=== PATIENT | female | born 1955 | race Caucasian/White ===

== ENCOUNTER → 2020-05-12 12:31 | Outpatient (CLI) | payer OTHER, MEDICAID, SELFPAY ==
--- NOTE | 2020-05-12 | DI.CT.S_ITS ---
PROCEDURE: CT INTERNAL AUDITORY CANALS BI INDICATIONS: Pulsatile tinnitus bilateral ears COMPARISON: None. TECHNIQUE: Noncontrast 0.6 mm thick direct axial and coronal sections acquired through each temporal bone separately. FINDINGS: Image quality: Excellent. RIGHT: External auditory canal: Canal has a normal appearance. Middle ear: The middle ear structures, including the ossicles and tympanic membrane, appear normal. No abnormal fluid or soft tissue density. Inner ear: Inner ear is normally formed and appears unremarkable. Facial nerve appears normal throughout is course. Mastoids: Mastoid air cells are clear. LEFT: External auditory canal: Canal has a normal appearance. Middle ear: The middle ear structures, including the ossicles and tympanic membrane, appear normal. No abnormal fluid or soft tissue density. Inner ear: Inner ear is normally formed and appears unremarkable. Facial nerve appears normal throughout its course. Mastoids: Mastoid air cells are clear. MISCELLANEOUS: Visualized surrounding bones appear unremarkable. Visualized intracranial structures, including the cerebellopontine angle cisterns, appear normal. There is chronic mucosal thickening seen within the left maxillary sinus. Mild mucosal thickening is seen elsewhere within the visualized paranasal sinuses. IMPRESSION: A cause of pulsatile tinnitus is not seen on this study. Focal left maxillary sinus disease noted. If it would be helpful for clinical management decision making, please consider a dedicated IAC protocol MRI (without and with contrast) for further evaluation (assuming that there is no contraindication). Dictated by: Guicho Flores M.D. on 05/12/2020 at 13:44 Approved by: Guicho Flores M.D. on 05/12/2020 at 13:46
== END ==
PROVIDERS: PCP Family Medicine; Referring Provider Otolaryngology; Visit Provider Otolaryngology
DX: H93.A3 Pulsatile tinnitus, bilateral (principal); J32.0 Chronic maxillary sinusitis
CPT/HCPCS: 70480

== ENCOUNTER 2020-07-25 12:06 | Day surgery (SDC) | payer OTHER, MEDICAID, SELFPAY ==
[2020-07-25] VITALS (7 sets, daily range): BP systolic 124–141; BP diastolic 65–82; PULSE 72–92; RESP 12–20; TEMP 36.4–37.2; O2SAT 76–99; BMI 51.7
--- NOTE | 2020-07-25 | PATH_ITS ---
[facility] Accession Number: [id number] . 01 Material submitted: . rectum - RECTAL/ANAL VERGE POLYP . 02 Diagnosis: Rectal/Anal Verge Polyp: Portions of hyperplastic polyp x2. MRV 07/28/2020 1041 Local . 02 Electronically signed: . Loulou Ricks MD, Pathologist NPI- [id number] . 01 Gross description: . RECTAL/ANAL VERGE POLYP: Received in formalin are 2 fragment(s) of piña, soft tissue measuring 0.3 x 0.2 x 0.1 cm to 0.3 x 0.2 x 0.1 cm submitted entirely in 1 cassette(s) /QBJ 07/26/2020 0903 Local . 02 Pathologist provided ICD-10: K63.5 . 02 CPT . 634680 Performed at: 01 [facility] [address] [id number] MD Dajuan Booker MD Phone: [phone] Performed at: 02 [facility] [address] [place], [place] [id number] MD Lillie Kenney MD Phone: [phone]
--- NOTE | 2020-07-25 | DI.MRI.S_ITS ---
PROCEDURE: MR HEAD/BRAIN WO CON INDICATIONS: Tinnitus, unspecified ear TECHNIQUE: Non-contrast axial T1 spin echo, axial T2 fast spin echo, sagittal and axial FLAIR, coronal T2 fast spin echo, axial gradient echo, axial diffusion and ADC through the brain. Thin section, high-resolution axial CISS images with coronal reconstructions obtained through the internal auditory canals COMPARISON: [facility], CT, CT INTERNAL AUDITORY CANALS , 05/12/2020, 12:31. FINDINGS: Image quality: Excellent. CSF spaces: Ventricles appear symmetric in size and shape. Basal cisterns are patent. No extra-axial fluid collections. Brain: No intracranial bleeds or mass effects. There is mild cerebral volume loss for age. There are minimal periventricular and deep white matter chronic small vessel ischemic changes. Brainstem appears normal. Diffusion-weighted images show no acute ischemic insults. No chronic ischemic insults. Normal intravascular flow voids are present. Skull and face: Calvarial bone marrow is normal in signal. Orbits are normal. Sinuses: Mild mucosal thickening in the right maxillary sinus. Moderate mucosal thickening in the left maxillary sinus. The mastoids are clear. IMPRESSION: 1. No evidence of vestibular schwannoma. 2. Right AICA loop crosses the superior margin of the cisternal segment of the right 7th-8th cranial nerve complex. Please correlate with clinical data to exclude vascular loop compression syndrome. 3. Mild, diffuse cerebral volume loss. 4. Minimal periventricular and subcortical white matter chronic microvascular ischemic change. Dictated by: Bee Castellanos MD, PhD on 07/25/2020 at 15:57 Approved by: Bee Castellanos MD, PhD on 07/25/2020 at 16:03
[2020-07-25] MEDS: SODIUM CHLORIDE 0.9% 1,000 ML 200 ML IV (13:30)
--- NOTE | 2020-07-25 14:33 | PM.HP.1 ---
History of Present Illness History of Present Illness Date Patient Seen: 07/25/20 Time Patient Seen: 14:33 Chief complaint: SCREENING COLONOSCOPY/Tinnitus, unspecified ear Narrative: This is a 64-year-old woman with recent finding of blood in the stool. She has never had a screening colonoscopy. She denies any personal or family history of colon cancer colon polyps. She denies any unexplained abdominal pain or unexplained weight loss, or any change in bowel habits. She denies any cardiac history. She is on several medications for tinnitus. ROS positive for tinnitus, Thirteen system review is otherwise negative other than as mentioned below and in HPI. PE: GENERAL: Well groomed and cooperative. Appears stated age. Answers questions promptly and appropriately. Vital signs noted. HENT: Normocephalic, atraumatic. Hearing intact. EYES: Conjunctiva pink, sclera white, no periorbital swelling. CARDIOVASCULAR: Regular rate. No pedal edema. RESPIRATORY: Non-tachypneic, breathing comfortably on room air. GASTROINTESTINAL: Abdomen soft and non-distended GENITALURINARY: No flank tenderness. MUSCULOSKELETAL: Equal tone and mass bilaterally. SKIN: Warm, dry, soft, appropriate color for ethnicity. No other lesions, rashes, or wounds. NEURO: Alert and Oriented X 3. No gross sensory deficits, or cognitive issues. PSYCH: Appropriate affect and mood. Patient History Medical History Tinnitus of both ears (Acute) Surgical History Status post appendectomy Family & Social History Social History: household members spouse Tobacco & Substance use: Smoking Status Never smoker alcohol intake never Substance Use Type does not use Meds Home Medications and Allergies Home Medications Medication Instructions Recorded Confirmed Type alprazolam [Xanax] 0.5 mg PO BID 07/25/20 07/25/20 History evening primrose oil 1,000 mg PO BID 07/25/20 07/25/20 History melatonin 10 mg PO BEDTIME 07/25/20 07/25/20 History mirtazapine 30 mg PO DAILY 07/25/20 07/25/20 History temazepam 30 mg PO BEDTIME 07/25/20 07/25/20 History Allergies Allergy/AdvReac Type Severity Reaction Status Date / Time No Known Drug Allergies Allergy Verified 07/25/20 13:15 Exam Vital Signs (past 8 hours): - 07/25/20 13:31 Temperature 99.0 F Pulse Rate 75 Respiratory Rate 12 Blood Pressure 127/73 Pulse Oximetry 99 Oxygen Delivery Method Room Air Assessment & Plan Assessment and plan (1) Rectal bleeding: Status: Acute Assessment & Plan narrative: Risks and benefits of screening colonoscopy and possible polypectomy were discussed with the patient including risk of bleeding, perforation, need for additional procedures, risks of anesthesia. The patient desires to proceed with the colonoscopy procedure. COVID-19 COVID-19 status: Negative Result date/Date tested (Pos, Neg/Pending): 07/21/20 Time Spent With Patient Time with patient: 15-24 minutes Quality VTE Deep Vein Thrombosis/Pulmonary Embolism Present on Admission: No
--- NOTE | 2020-07-25 14:37 | P.OP.ENDO_ITS ---
Operative Date/Time/Diagnoses Date of procedure: 07/25/20 Time of procedure: 14:37 Pre-op diagnosis: rectal bleeding Post-op diagnosis: other (polyp at anal verge) Procedure & Clinicians Study performed: colonoscopy procedural sedation performed by the endoscopist polypectomy with cold forceps Same procedure as scheduled: Yes Indications: Rectal bleeding Surgeon: Anita Costa Procedure Notes SCOAP/Timeout: Performed Procedure in detail: The patient was brought to the room and placed in left lateral decubitus position with all bony prominences padded. A time-out was performed and then the patient was given procedural sedation starting with 2 mg of Versed and [100] mcg of fentanyl. A total of 4 mg of Versed and 150 micrograms of fentanyl. Vitals were monitored throughout the procedure and remained stable. Once adequately sedated, the procedure was begun. A rectal exam was performed revealing [no abnormalities]. The colonoscope was then introduced to the rectum and advanced to the cecum in the usual fashion. []The cecum was identified by the appendiceal orifice, the mucosal tri-fold, and the ileocecal valve. The scope was then retracted while rotating side to side and examining each mucosal fold. [] At the conclusion of the procedure retroflexion was performed and small polyp was seen at the anal verge. It was removed with cold forceps. There was a moderate amount of bleeding because of the h emorrhoidal veins in this area. There were no significant hemorrhoids, and no stigmata of recent bleeding other than the polypectomy site. The scope was then withdrawn from the rectum the procedure was concluded. The patient tolerated the procedure well and was transferred to the PACU in stable condition. A rolled Gelfoam with Nupercaine was placed into the anal canal in order to help stop any bleeding from the polypectomy site. Scope withdrawal time: 10 Sedation minutes: 23 Findings: polyp (Anal verge) Specimen(s): other (Single polyp from anal verge) Complications: none Impression: Polyp at anal verge as possible source of bleeding, no other sources of rectal bleeding identified Post-procedure Recommendations: Colonscopy in 10 years (So long as pathology is benign) Follow up: as needed Disposition: PACU
[2020-07-25] MEDS: MIDAZOLAM 5 MG/5 ML VIAL IV (14:40)
[2020-07-25] MEDS: fentaNYL 250 MCG/5 ML INJ IV (14:40)
[2020-07-25] MEDS: DIBUCAINE 1% OINT 28 GM 1 APPLIC TOP (15:06)
[2020-07-25] MEDS: ACETAMINOPHEN 325 MG TABLET 650 MG PO (15:33)
[2020-07-25] MEDS: ONDANSETRON 4 MG/2 ML INJ IV (15:33)
== END 2020-07-25 16:21 | disposition home or self-care (01) ==
PROVIDERS: PCP Family Medicine; Referring Provider Family Medicine; Visit Provider Surgery
PROC: 0DJD8ZZ Inspection of Lower Intestinal Tract, Via Natural or Artificial Opening Endoscopic (ICD-10-PCS; CPT 45378; principal; 2020-07-25 14:30)
DX: K62.5 Hemorrhage of anus and rectum (principal); K62.1 Rectal polyp
CPT/HCPCS: 45380; 70551; 99152; J2250; J2405; J3010

== ENCOUNTER → 2021-05-21 12:28 | Outpatient (CLI) | payer MEDICARE, OTHER, SELFPAY ==
--- NOTE | 2021-05-21 | DI.MRI.S_ITS ---
PROCEDURE: MR HEAD/BRAIN WO CON INDICATIONS: TINNITUS RIGHT EAR TECHNIQUE: Noncontrast axial T1 spin echo, axial T2 fast spin echo, sagittal and axial FLAIR, coronal T2 fast spin echo, axial gradient echo, axial diffusion and ADC through the brain. COMPARISON: MRI brain July 25, 2020. FINDINGS: Image quality: Excellent. CSF Spaces: Basal cisterns are patent. No extra-axial fluid collections. Ventricles are normal in size and shape. Brain: No intracranial masses or hemorrhage. There is mild, diffuse cerebral volume loss. There are minimal periventricular and subcortical white matter chronic microvascular ischemic changes. Cisneros/white matter interface is normal. Brainstem appears normal. Diffusion-weighted images demonstrate no acute ischemic insult. No chronic ischemic insults. Vascular loop crossing the cisternal segment of the right 7th-8th cranial nerve complex is stable. Normal intravascular flow voids are present. Skull and face: Calvarium has normal marrow signal. Orbits appear normal. Sinuses: Sinuses and mastoids are clear. IMPRESSION: 1. No acute intracranial disease process. 2. No abnormal intracranial mass or mass effect. 3. No areas of acute or chronic infarction. 4. Mild, diffuse cerebral volume loss. 5. Minimal periventricular and subcortical white matter chronic microvascular ischemic changes. 6. Vascular loop crossing the cisternal segment of the right 7th-8th cranial nerve complex is stable. Dictated by: Bee Castellanos MD, PhD on 05/21/2021 at 13:17 Approved by: Bee Castellanos MD, PhD on 05/21/2021 at 13:19
--- NOTE | 2021-05-21 | DI.CT.S_ITS ---
PROCEDURE: CT SOFT TISSUE NECK W CON INDICATIONS: TINNITUS RIGHT EAR,NECK MASS TECHNIQUE: After the administration of intravenous contrast, 3.0 mm axial sections acquired from the sella to the aortic arch. Additional oblique axial 3.0 mm sections acquired through the pharynx. 3 mm thick coronal and sagittal reformats were generated. For radiation dose reduction, the following was used: automated exposure control. COMPARISON: None. FINDINGS: Image quality: Excellent. Lymph nodes: Enlarged level 2/3 lymph node seen on the right in the area of palpable abnormality. Vessels: Visualized vasculature appears patent. Neck spaces: The oropharynx, nasopharynx, and pharynx demonstrate no mucosal lesions. The vocal cords, false vocal cords, pyriform sinuses, epiglottis, vallecula, and tongue base all appear normal. Extramucosal spaces appear unremarkable. Glands: The parotid and submandibular glands appear normal. Thyroid gland contains 8 mm nodule with mixed solid and cystic appearance in the left lobe image 54/2. Miscellaneous: Visualized brain and orbits appear normal. Lung apices appear clear. Superficial soft tissues appear normal. Bones: No suspicious bony lesions. Visualized sinuses and mastoids appear unremarkable. IMPRESSION: Enlarged right level 2/3 lymph node in the area of palpable abnormality. This could be reactive although metastatic/malignant processes are in the differential. Recommend clinical correlation and management. Further assessment with ultrasound-guided FNA could be considered as clinically warranted. 8 mm mixed solid and cystic left thyroid nodule, nonspecific. Dedicated ultrasound is recommended for further assessment. Dictated by: Luis M Espinoza M.D. on 05/21/2021 at 16:44 Approved by: Luis M Espinoza M.D. on 05/21/2021 at 16:50
== END ==
PROVIDERS: PCP Family Medicine; Referring Provider Physician Assistant; Visit Provider Physician Assistant
DX: R22.1 Localized swelling, mass and lump, neck (principal); H93.11 Tinnitus, right ear; R59.0 Localized enlarged lymph nodes; E04.1 Nontoxic single thyroid nodule
CPT/HCPCS: 70491; 70551; Q9967

== ENCOUNTER → 2021-09-28 12:36 | Outpatient (CLI) | payer MEDICARE, OTHER, SELFPAY | PROVIDERS: PCP Family Medicine; Referring Provider Otolaryngology; Visit Provider Otolaryngology | DX: R22.1 Localized swelling, mass and lump, neck (principal) | CPT/HCPCS: 36415; 86900; 86901 ==